=== PATIENT | female | born 1970 | race Caucasian/White ===

== ENCOUNTER 2019-11-12 10:41 | Outpatient (CLI) | payer OTHER ==
[2019-11-12] MEDS ORDERED: ALBU8.5H8 INH (11:17)
[2019-11-16] MEDS ORDERED: MIDAZOLAM 1 MG/ML, 2ML ONE (08:00)
[2019-11-16] MEDS ORDERED: FENTANYL PF 250 MCG/5ML ONE (08:00)
[2019-11-16] MEDS ORDERED: PROPOFOL 10 MG/ML, 20ML ONE (08:00)
[2019-11-16] MEDS ORDERED: ONDANSETRON 2MG/ML, 2ML ONE (08:01)
[2019-11-16] MEDS ORDERED: LIDOCAINE-MPF 2% ,5ML ONE (08:01)
[2019-11-16] MEDS ORDERED: DEXAMETHASONE 4 MG/ML, 1ML ONE ×2 (08:01)
[2019-11-16] MEDS ORDERED: CEFAZOLIN 1,000 MG ONE ×2 (08:01)
[2019-11-16] MEDS ORDERED: ROCURONIUM 10MG/ML,5ML ONE (08:01)
[2019-11-16] MEDS ORDERED: SODIUM CHLORIDE 0.9% PF 10ML ONE (08:01)
== END 2019-11-12 23:59 | disposition home or self-care (01) ==
LOC: STAR 10:41
PROVIDERS: ATTEND Obstetrics & Gynecology Female Pelvic Medicine and Reconstructive Surgery
DX: Z02.9 Encounter for administrative examinations, unspecified (principal)